=== PATIENT | female | born 1950 | race Caucasian/White ===

== ENCOUNTER 2025-06-24 16:52 | Outpatient (CLI) | payer OTHER, SELFPAY ==
--- NOTE | ~2025-06-24 | XR_ITS ---
XR lumbar spine min 4V Indication: Low back pain, unspecified Comparison: None Findings: Levoconvex scoliosis. Moderate loss of vertebral height throughout. Moderate osteopenia. Grade 1 anterolisthesis of L4 on L5 with moderate to severe loss of disc height throughout most marked at T12-L1, L1-2 and L4-5. The disc heights are intact. Soft tissues unremarkable Impression: No acute abnormality. Reviewed, dictated and finalized at location [facility] Impression: No acute abnormality.
== END 2025-06-24 16:53 | disposition home or self-care (01) ==
LOC: MICIMG 16:56
PROVIDERS: PCP Nurse Practitioner Family; Visit Provider Nurse Practitioner Family
DX: M54.50 Low back pain, unspecified (principal); G89.29 Other chronic pain
CPT/HCPCS: 72110